=== PATIENT | female | born 1970 | race American Indian/Alaskan Native ===

== ENCOUNTER 2016-11-22 12:52 | Emergency (ER) | payer SELFPAY ==
[2016-11-22 13:34] LABS: Basophils % (Auto) 0.8 % (0.0-1.8); Eosinophils % (Auto) 3.8 % (0.0-4.3); Hematocrit 32.6 % (30.3-42.9); Mean Corpuscular HGB Conc 31 % (30-34); Mean Corpuscular Volume 73 fl (79-97); Platelet Count 416 K/mm3 (140-440); Red Blood Count 4.46 M/mm3 (3.65-5.03); Red Cell Distribution Width 16.6 % (13.2-15.2); White Blood Count 7.3 K/mm3 (4.5-11.0)
[2016-11-22 13:43] LABS: Mean Corpuscular Hemoglobin 22 pg (28-32)
[2016-11-22 13:55] LABS: Anion Gap 19 mmol/L; BUN/Creatinine Ratio 11.66; Blood Urea Nitrogen 7 mg/dL (7-17); Carbon Dioxide 22 mmol/L (22-30); Chloride 102.5 mmol/L (98-107); Glucose 97 mg/dL (65-100); Potassium 4.3 mmol/L (3.6-5.0); Sodium 139 mmol/L (137-145)
[2016-11-22 17:19] LABS: Bilirubin,Urine NEG (Negative); Blood,Urine NEG (Negative); Ketones,Urine NEG (Negative); Leukocyte Esterase,Urine NEG (Negative); Mucus,Urine FEW /HPF; Nitrite,Urine NEG (Negative); Protein,Urine <15 mg/dL mg/dL (Negative); Urobilinogen,Urine < 2.0 mg/dL (<2.0)
[2016-11-22] MEDS ORDERED: PEPCID IV ONE (20:42)
[2016-11-22] MEDS ORDERED: NORCO 5/325 PO ONE (20:42)
--- NOTE | 2016-11-22 21:46 | Emergency Department Report ---
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 Pain started upon waking yesterday. She states pain was in the middle of her chest, grabbing, and twisting and sensation. Pain lasts for 5-10 minutes at a time. Positive diaphoresis with initial episode yesterday a.m. Pain is intermittent throughout the day and mostly occurred with rest or while lying down but also occurs with activity as well. 3 pain episodes she has difficulty finding a comfortable position and states the pain is worse with movement and inspiration and has been having difficulty sleeping due to pain. Pain is moderate to severe at times. Patient taken Naprosyn intermittently for pain. Mild shortness of breath reported and dyspnea with extended exertion has been noted 1 month. Patient denies calf tenderness, edema, recent travel, or PE/DVT. About 3 or 4 months ago patient was seen at [facility] and had a non-exercise stress test. She was told she had mild CHF but did not require cardiac catheterization. Patient does not have high blood pressure high cholesterol, or diabetes but she does smoke approximately 3 cigarettes per week. She denies family history of CAD but there is a family history of CHF. Patient also complains of pain to her posterior right thorax and pain radiating from her back up to her posterior chest wall area. Patient does have a history of GERD is not currently on any H2 dina or PPI. PMD: None Severity scale (0 -10): 4 - Related Data Previous Rx's Medication Instructions Recorded Last Taken Type Pantoprazole [Protonix TAB] 20 mg PO QDAY #30 tablet. 07/25/15 Unknown Rx oxyCODONE /ACETAMINOPHEN [Percocet 1 tab PO Q12H PRN #10 tablet 07/25/15 Unknown Rx 5/325] Naproxen [Naproxen TAB] 250 mg PO Q4H #30 tablet 02/16/16 Unknown Rx Cyclobenzaprine [Flexeril 10 MG 10 mg PO TID PRN #20 tablet 11/22/16 Unknown Rx TAB] Famotidine [Pepcid] 20 mg PO BID #30 tablet 11/22/16 Unknown Rx HYDROcodone/APAP 5-325 [[place] 1 each PO Q6HR PRN #20 tablet 11/22/16 Unknown Rx 5/325] Allergies Allergy/AdvReac Type Severity Reaction Status Date / Time ibuprofen [From Motrin] Allergy Nausea Verified 02/16/16 02:45 MAGNUS score - Magnus Score Age > 65: (0) No Aspirin use within the Past 7 Days: (0) No 3 or more CAD Risk Factors: (0) No 2 or more Angina events in past 24 hrs: (1) Yes Known CAD with more than 50% Stenosis: (0) No Elevated Cardiac Markers: (0) No ST Deviation Greater than 0.5mm: (0) No MAGNUS Score: 1 ED Review of Systems ROS: Stated complaint: CP/UPPER/LOWER BACK PAIN Other details as noted in HPI Comment: All other systems reviewed and negative Other: Constitutional: No fevers chills Eyes: No eye pain visual changes ENT: No ear pain or throat pain Neck: Denies pain Respiratory: Denies cough wheezing Cardiovascular: Denies palpitations, syncope GI: Denies abdominal pain, nausea, vomiting, diarrhea : Denies dysuria Musculoskeletal: Denies back pain Skin: Denies rash, lesions, erythema Neurologic: Denies headache, numbness, weakness Psychiatric: Denies suicidal ideation, hallucinations ED Past Medical Hx - Past Medical History Hx GERD: Yes Hx Arthritis: Yes Hx Tuberculosis: Yes (as a child) Additional medical history: pinched nerve in neck, CHF - Surgical History Past Surgical History?: No - Social History Smoking Status: Current Some Day Smoker - Medications Home Medications: Home Medications Medication Instructions Recorded Confirmed Last Taken Type Pantoprazole [Protonix TAB] 20 mg PO QDAY #30 tablet. 07/25/15 Unknown Rx oxyCODONE /ACETAMINOPHEN [Percocet 1 tab PO Q12H PRN #10 tablet 07/25/15 Unknown Rx 5/325] Naproxen [Naproxen TAB] 250 mg PO Q4H #30 tablet 02/16/16 Unknown Rx Cyclobenzaprine [Flexeril 10 MG 10 mg PO TID PRN #20 tablet 11/22/16 Unknown Rx TAB] Famotidine [Pepcid] 20 mg PO BID #30 tablet 11/22/16 Unknown Rx HYDROcodone/APAP 5-325 [[place] 1 each PO Q6HR PRN #20 tablet 11/22/16 Unknown Rx 5/325] ED Physical Exam - General Limitations: No Limitations - Other Other exam information: General: No limitations, patient is alert in no acute distress Head exam: Atraumatic, normocephalic Eyes exam: Normal appearance, ENT: Moist mucous membrane, normal oropharynx Neck exam: Normal inspection, full range of motion, no meningismus nontender Respiratory exam: Clear to auscultation bilateral, no wheezes, rales, crackles Cardiovascular: Normal rate and rhythm, normal heart sounds, anterior chest wall tender to palpation, tenderness to parascapular muscles posterior thorax Abdomen: Soft, nondistended, and nontender, with normal bowel sounds, no rebound, or guarding Extremity: Full range of motion normal inspection no deformity, no calf tenderness or edema Back: Normal Inspection, full range of motion, no tenderness Neurologic: Alert, oriented x3, cranial nerves intact, no motor or sensory deficit Psychiatric: normal affect, normal mood Skin: Warm, dry, intact ED Course Vital Signs 11/22/16 11/22/16 11/22/16 13:07 19:04 19:54 Temperature 98.2 F 98.8 F Pulse Rate 91 H 86 Respiratory 20 20 13 Rate Blood Pressure 123/84 118/83 O2 Sat by Pulse 100 100 100 Oximetry 11/22/16 20:01 Temperature Pulse Rate 81 Respiratory 15 Rate Blood Pressure 108/72 O2 Sat by Pulse 99 Oximetry - Reevaluation(s) Reevaluation #1: 11/22/16 21:48 Meds ordered at 20:42 patient awaiting administration of these medications ED Medical Decision Making - Lab Data Result diagrams: 11/22/16 13:26 11/22/16 13:26 Lab Results 11/22/16 11/22/16 11/22/16 Range/Units 13:26 13:26 16:34 WBC 7.3 (4.5-11.0) K/mm3 RBC 4.46 (3.65-5.03) M/mm3 Hgb 10.0 L (10.1-14.3) gm/dl Hct 32.6 (30.3-42.9) % MCV 73 L (79-97) fl MCH 22 L (28-32) pg MCHC 31 (30-34) % RDW 16.6 H (13.2-15.2) % Plt Count 416 (140-440) K/mm3 Lymph % (Auto) 31.1 (13.4-35.0) % [place] % (Auto) 7.9 H (0.0-7.3) % Eos % (Auto) 3.8 (0.0-4.3) % Baso % (Auto) 0.8 (0.0-1.8) % Lymph # 2.3 (1.2-5.4) K/mm3 [place] # 0.6 (0.0-0.8) K/mm3 Eos # 0.3 (0.0-0.4) K/mm3 Baso # 0.1 (0.0-0.1) K/mm3 Seg Neutrophils % 56.4 (40.0-70.0) % Seg Neutrophils # 4.1 (1.8-7.7) K/mm3 D-Dimer (0-234) ng/mlDDU Sodium 139 (137-145) mmol/L Potassium 4.3 (3.6-5.0) mmol/L Chloride 102.5 (98-107) mmol/L Carbon Dioxide 22 (22-30) mmol/L Anion Gap 19 mmol/L BUN 7 (7-17) mg/dL Creatinine 0.6 L (0.7-1.2) mg/dL Estimated GFR > 60 ml/min BUN/Creatinine Ratio 11.66 % Glucose 97 (65-100) mg/dL Calcium 9.0 (8.4-10.2) mg/dL Troponin T < 0.010 < 0.010 (0.00-0.029) ng/mL Urine Color (Yellow) Urine Turbidity (Clear) Urine pH (5.0-7.0) Ur Specific [place] (1.003-1.030) Urine Protein (Negative) mg/dL Urine Glucose (UA) (Negative) mg/dL Urine Ketones (Negative) mg/dL Urine Blood (Negative) Urine Nitrite (Negative) Ur Reducing Substances Urine Bilirubin (Negative) Urine Ictotest Urine Urobilinogen (<2.0) mg/dL Ur Leukocyte Esterase (Negative) Urine WBC (Auto) (0.0-6.0) /HPF Urine RBC (Auto) (0.0-6.0) /HPF U Epithel Cells (Auto) (0-13.0) /HPF Hyaline Casts /LPF Urine Mucus /HPF Urine HCG, Qual (Negative) 11/22/16 11/22/16 11/22/16 Range/Units 17:04 20:10 20:51 WBC (4.5-11.0) K/mm3 RBC (3.65-5.03) M/mm3 Hgb (10.1-14.3) gm/dl Hct (30.3-42.9) % MCV (79-97) fl MCH (28-32) pg MCHC (30-34) % RDW (13.2-15.2) % Plt Count (140-440) K/mm3 Lymph % (Auto) (13.4-35.0) % [place] % (Auto) (0.0-7.3) % Eos % (Auto) (0.0-4.3) % Baso % (Auto) (0.0-1.8) % Lymph # (1.2-5.4) K/mm3 [place] # (0.0-0.8) K/mm3 Eos # (0.0-0.4) K/mm3 Baso # (0.0-0.1) K/mm3 Seg Neutrophils % (40.0-70.0) % Seg Neutrophils # (1.8-7.7) K/mm3 D-Dimer < 135.00 (0-234) ng/mlDDU Sodium (137-145) mmol/L Potassium (3.6-5.0) mmol/L Chloride (98-107) mmol/L Carbon Dioxide (22-30) mmol/L Anion Gap mmol/L BUN (7-17) mg/dL Creatinine (0.7-1.2) mg/dL Estimated GFR ml/min BUN/Creatinine Ratio % Glucose (65-100) mg/dL Calcium (8.4-10.2) mg/dL Troponin T < 0.010 (0.00-0.029) ng/mL Urine Color Yellow (Yellow) Urine Turbidity Clear (Clear) Urine pH 5.0 (5.0-7.0) Ur Specific [place] 1.020 (1.003-1.030) Urine Protein <15 mg/dl (Negative) mg/dL Urine Glucose (UA) Neg (Negative) mg/dL Urine Ketones Neg (Negative) mg/dL Urine Blood Neg (Negative) Urine Nitrite Neg (Negative) Ur Reducing Substances Not Reportable Urine Bilirubin Neg (Negative) Urine Ictotest Not Reportable Urine Urobilinogen < 2.0 (<2.0) mg/dL Ur Leukocyte Esterase Neg (Negative) Urine WBC (Auto) 1.0 (0.0-6.0) /HPF Urine RBC (Auto) 1.0 (0.0-6.0) /HPF U Epithel Cells (Auto) 1.0 (0-13.0) /HPF Hyaline Casts 1 /LPF Urine Mucus Few /HPF Urine HCG, Qual Negative (Negative) - EKG Data -: EKG Interpreted by Me (nsr rate 85, no stemi, t invesion) - EKG Data When compared to previous EKG there are: no significant change (compared to 10/11) - Medical Decision Making Patient's has had 3 negative cardiac enzymes, negative d-dimer, normal EKG, and atypical symptoms. Patient does not have any significant cardiac risk factors. She has a negative stress test approximately 3-4 months ago performed at [facility]. No signs of CHF or cardiac decompensation on chest x-ray. There is a reproducible component to pain clinically. She presents she symptomatically with pain medication and encouraged to follow-up with a primary care doctor. Meds given in the ED: [place] Pepcid IV - Differential Diagnosis GERD, MSK pain, PE, atypical chest pain, NM, unstable Critical Care Time: No Critical care attestation.: If time is entered above; I have spent that time in minutes in the direct care of this critically ill patient, excluding procedure time. ED Disposition Clinical Impression: Chest pain, GERD (gastroesophageal reflux disease) Disposition: DISCHARGED TO HOME OR SELFCARE Is pt being admited?: No Does the pt Need Aspirin: No Condition: Stable Instructions: Chest Pain (ED) Additional Instructions: Take the medication as prescribed. Return if symptoms worsen. Follow-up with the primary care doctor or clinic provided. Prescriptions: Cyclobenzaprine [Flexeril 10 MG TAB] 10 mg PO TID PRN #20 tablet PRN Reason: Muscle Spasm Famotidine [Pepcid] 20 mg PO BID #30 tablet HYDROcodone/APAP 5-325 [[place] 5/325] 1 each PO Q6HR PRN #20 tablet PRN Reason: Pain Referrals: [facility] [Provider Group] - 2-3 Days RAMILA CHAPARRO MD [Staff Physician] - 2-3 Days Time of Disposition: 21:51
[2016-11-22 22:00] VITALS: BP 132/84
--- NOTE | 2016-11-23 07:28 | XRay Report ---
CHEST 2 VIEWS INDICATION: Chest pain. COMPARISON: None similar. FINDINGS: PA and lateral chest radiographs demonstrate normal cardiomediastinal silhouette. Clear lungs. Mild thoracic spine degenerative spurring. EKG leads. CONCLUSION: No acute disease in the chest. Thank you for the opportunity to participate in this patient's care.
== END 2016-11-22 22:25 | disposition home or self-care (01) ==
LOC: ED 12:52
DX: K21.9 Gastro-esophageal reflux disease without esophagitis (principal); R07.9 Chest pain, unspecified; M19.90 Unspecified osteoarthritis, unspecified site; Z72.0 Tobacco use; Z88.6 Allergy status to analgesic agent
CPT/HCPCS: 36415; 71020; 80048; 81001; 81025; 84484; 85025; 85379; 93005; 93010; 96374

== ENCOUNTER 2017-11-09 03:13 | Emergency (ER) | payer OTHER ==
[2017-11-09] MEDS ORDERED: ASPIRIN PO ONE (03:36)
[2017-11-09 03:57] LABS: Basophils # (Auto) 0.1 K/mm3 (0.0-0.1); Basophils % (Auto) 0.8 % (0.0-1.8); Eosinophils # (Auto) 0.1 K/mm3 (0.0-0.4); Eosinophils % (Auto) 2.1 % (0.0-4.3); Hematocrit 30.3 % (30.3-42.9); Hemoglobin 9.3 gm/dl (10.1-14.3); Lymphocytes # (Auto) 1.9 K/mm3 (1.2-5.4); Lymphocytes % (Auto) 26.4 % (13.4-35.0); Mean Corpuscular HGB Conc 31 % (30-34); Mean Corpuscular Hemoglobin 22 pg (28-32); Mean Corpuscular Volume 72 fl (79-97); Monocytes # (Auto) 0.5 K/mm3 (0.0-0.8); Monocytes % (Auto) 6.5 % (0.0-7.3); Platelet Count 460 K/mm3 (140-440); Red Blood Count 4.23 M/mm3 (3.65-5.03); Red Cell Distribution Width 16.4 % (13.2-15.2)
[2017-11-09 04:18] LABS: BUN/Creatinine Ratio 13; Blood Urea Nitrogen 9 mg/dL (7-17); Calcium 8.9 mg/dL (8.4-10.2); Hemolysis Index 1
--- NOTE | 2017-11-09 04:36 | Emergency Department Report ---
ED Chest Pain HPI - General Chief Complaint: Chest Pain Stated Complaint: CP Time Seen by Provider: 11/09/17 04:13 Source: EMS Mode of arrival: Ambulatory Limitations: No Limitations - History of Present Illness Initial Comments: pt. says while she was at work at about 11pm she started having left sided hand pain radiating to the chest across both sides. MD Complaint: chest pain Onset/Timin (hrs) -: Gradual Onset: during exertion Pain Location: left chest, right chest Pain Radiation: LUE Severity: moderate Severity scale (0 -10): 7 Quality: tightness Consistency: constant Improves With: nothing Worsens With: nothing Treatments Prior to Arrival: none - Related Data Previous Rx's Medication Instructions Recorded Last Taken Type Pantoprazole [Protonix TAB] 20 mg PO QDAY #30 tablet. 07/25/15 Unknown Rx oxyCODONE /ACETAMINOPHEN [Percocet 1 tab PO Q12H PRN #10 tablet 07/25/15 Unknown Rx 5/325] Naproxen [Naproxen TAB] 250 mg PO Q4H #30 tablet 02/16/16 Unknown Rx Cyclobenzaprine [Flexeril 10 MG 10 mg PO TID PRN #20 tablet 11/22/16 Unknown Rx TAB] Famotidine [Pepcid] 20 mg PO BID #30 tablet 11/22/16 Unknown Rx HYDROcodone/APAP 5-325 [[place] 1 each PO Q6HR PRN #20 tablet 11/22/16 Unknown Rx 5/325] Cyclobenzaprine HCl [Flexeril 5 MG 5 mg PO TID #30 tab 11/09/17 Unknown Rx TAB] Allergies Allergy/AdvReac Type Severity Reaction Status Date / Time ibuprofen [From Motrin] Allergy Nausea Verified 11/09/17 04:27 Heart Score - HEART Score History: Slightly suspicious EKG: Normal Age: 45-65 Risk factors: No known risk factors Troponin: < normal limit HEART Score: 1 - Critical Actions Critical Actions: 0-3 pts:0.9-1.7%risk of adverse cardiac event.Candidate for discharge ED Review of Systems ROS: Stated complaint: CP Other details as noted in HPI Comment: All other systems reviewed and negative ED Past Medical Hx - Past Medical History Hx GERD: Yes Hx Arthritis: Yes Hx Tuberculosis: Yes (as a child) Additional medical history: pinched nerve in neck, CHF - Social History Smoking Status: Never Smoker Substance Use Type: Cocaine - Medications Home Medications: Home Medications Medication Instructions Recorded Confirmed Last Taken Type Pantoprazole [Protonix TAB] 20 mg PO QDAY #30 tablet. 07/25/15 Unknown Rx oxyCODONE /ACETAMINOPHEN [Percocet 1 tab PO Q12H PRN #10 tablet 07/25/15 Unknown Rx 5/325] Naproxen [Naproxen TAB] 250 mg PO Q4H #30 tablet 02/16/16 Unknown Rx Cyclobenzaprine [Flexeril 10 MG 10 mg PO TID PRN #20 tablet 11/22/16 Unknown Rx TAB] Famotidine [Pepcid] 20 mg PO BID #30 tablet 11/22/16 Unknown Rx HYDROcodone/APAP 5-325 [[place] 1 each PO Q6HR PRN #20 tablet 11/22/16 Unknown Rx 5/325] Cyclobenzaprine HCl [Flexeril 5 MG 5 mg PO TID #30 tab 11/09/17 Unknown Rx TAB] ED Physical Exam - General Limitations: No Limitations General appearance: alert, in no apparent distress - Head Head exam: Present: atraumatic, normocephalic - Eye Eye exam: Present: normal appearance, PERRL - ENT ENT exam: Present: mucous membranes moist - Neck Neck exam: Present: normal inspection - Respiratory Respiratory exam: Present: normal lung sounds bilaterally, chest wall tenderness (across the chest). Absent: respiratory distress - Cardiovascular Cardiovascular Exam: Present: regular rate, normal rhythm. Absent: systolic murmur, diastolic murmur, rubs, gallop - GI/Abdominal GI/Abdominal exam: Present: soft, normal bowel sounds. Absent: tenderness - Rectal Rectal exam: Present: deferred - Extremities Exam Extremities exam: Present: normal inspection - Back Exam Back exam: Present: normal inspection - Neurological Exam Neurological exam: Present: alert, oriented X3 - Psychiatric Psychiatric exam: Present: normal affect, normal mood - Skin Skin exam: Present: warm, dry, intact, normal color. Absent: rash ED Course Vital Signs 11/09/17 11/09/17 11/09/17 03:28 03:30 03:41 Temperature 98.3 F Pulse Rate 86 85 84 Respiratory 14 18 20 Rate Blood Pressure 133/81 O2 Sat by Pulse 100 Oximetry 11/09/17 11/09/17 11/09/17 03:46 04:00 04:16 Temperature Pulse Rate 81 80 81 Respiratory 14 17 18 Rate Blood Pressure 133/81 124/83 124/83 O2 Sat by Pulse 100 100 99 Oximetry 11/09/17 11/09/17 11/09/17 04:17 04:30 04:46 Temperature Pulse Rate 81 79 Respiratory 20 12 17 Rate Blood Pressure 132/81 117/77 O2 Sat by Pulse 99 100 Oximetry 11/09/17 11/09/17 11/09/17 05:00 05:16 05:30 Temperature Pulse Rate 87 80 78 Respiratory 26 H 19 22 Rate Blood Pressure 117/77 117/44 113/62 O2 Sat by Pulse 100 98 99 Oximetry 11/09/17 11/09/17 11/09/17 05:46 06:00 06:16 Temperature Pulse Rate 79 79 78 Respiratory 18 17 13 Rate Blood Pressure 114/70 109/72 109/72 O2 Sat by Pulse 99 100 98 Oximetry 11/09/17 11/09/17 11/09/17 06:30 06:46 07:00 Temperature Pulse Rate 78 79 79 Respiratory 14 17 17 Rate Blood Pressure 114/70 100/58 100/58 O2 Sat by Pulse 99 98 98 Oximetry MAGNUS score - Magnus Score Age > 65: (0) No Aspirin use within the Past 7 Days: (0) No 3 or more CAD Risk Factors: (0) No 2 or more Angina events in past 24 hrs: (1) Yes Known CAD with more than 50% Stenosis: (0) No Elevated Cardiac Markers: (0) No ST Deviation Greater than 0.5mm: (0) No MAGNUS Score: 1 ED Medical Decision Making - Lab Data Result diagrams: 11/09/17 03:45 11/09/17 03:45 - EKG Data -: EKG Interpreted by Me EKG shows normal: sinus rhythm (rate of 87), axis (normal), intervals (normal), QRS complexes (normal), ST-T waves (normal) Critical care attestation.: If time is entered above; I have spent that time in minutes in the direct care of this critically ill patient, excluding procedure time. ED Disposition Clinical Impression: Atypical chest pain Disposition: DC-01 TO HOME OR SELFCARE Is pt being admited?: No Does the pt Need Aspirin: No Condition: Stable Instructions: Chest Pain (ED) Additional Instructions: TAKE OTC TYLENOL NEEDED AND STOP TAKING ANY RECREATIONAL DRUGS Prescriptions: Cyclobenzaprine HCl [Flexeril 5 MG TAB] 5 mg PO TID #30 tab Referrals: LORENA TOBIN MD [Primary Care Provider] - 3-5 Days Time of Disposition: 06:58 Print Language: LATVIAN
[2017-11-09] MEDS ORDERED: MORPHINE ONE (06:08)
[2017-11-09] MEDS ORDERED: MORPHINE IV ONE (06:09)
[2017-11-09 07:08] VITALS: BP 100/58
== END 2017-11-09 07:46 | disposition home or self-care (01) ==
LOC: ED 03:13
DX: R07.89 Other chest pain (principal); M79.642 Pain in left hand; K21.9 Gastro-esophageal reflux disease without esophagitis; M19.90 Unspecified osteoarthritis, unspecified site; I50.9 Heart failure, unspecified; Z88.6 Allergy status to analgesic agent
CPT/HCPCS: 36415; 80048; 84484; 84703; 85025; 93005; 93010; 96374; 99284; J2270